=== PATIENT | female | born 1945 ===

== ENCOUNTER 2022-07-10 07:46 | Outpatient (CLI) | payer MEDICARE | END 2022-07-10 23:59 | disposition home or self-care (01) | LOC: LAB 07:46 | PROVIDERS: ATTEND Obstetrics & Gynecology | DX: Z01.812 Encounter for preprocedural laboratory examination (principal); Z20.822 Contact with and (suspected) exposure to COVID-19 ==

== ENCOUNTER 2022-07-13 08:56 | Inpatient (IN) | payer MEDICARE, OTHER ==
[~2022-07-13] VITALS: Ht 152.4 cm; Wt 60.8 kg
[2022-07-13] MEDS ORDERED: LIDOCAINE 1%-EPI 1:100,000 20 ML VIAL ONE (09:53)
[2022-07-13 10:35] LABS: *BILIRUBIN,URIN NEGATIVE (NEGATIVE); *CLARITY,URINE CLEAR (CLEAR); *COLOR,URINE YELLOW (YELLOW); *KETONES,URINE NEGATIVE (NEGATIVE); *UROBILINOGEN,URINE 0.2 E.U./dl (NORMAL); LEUKOCYTE ESTERASE ,URINE NEGATIVE (NEGATIVE); NITRITE, URINE NEGATIVE (NEGATIVE); PH,URINE 6.5 (5.0-8.0); UGLUCOSE NEGATIVE (NEGATIVE)
[2022-07-13] MEDS ORDERED: GLYCOPYRROLATE 0.2 MG/ML VIAL ONE (10:35)
[2022-07-13] MEDS ORDERED: DEXAMETHASONE SOD PHOSPHATE 4 MG INJ ONE (10:35)
[2022-07-13] MEDS ORDERED: ONDANSETRON 4 MG/2 ML VIAL ONE (10:35)
[2022-07-13] MEDS ORDERED: CEFAZOLIN 1 G VIAL ONE (10:35)
[2022-07-13] MEDS ORDERED: PROPOFOL 200 MG/20 ML BOTTLE ONE (10:35)
[2022-07-13] MEDS ORDERED: FENTANYL CITRATE 100 MCG/2 ML AMPUL ONE ×2 (10:37→11:59)
[2022-07-13 10:38] LABS: *BLOOD, URINE TRACE (NEGATIVE)
[2022-07-13] MEDS ORDERED: MIDAZOLAM HCL 2 MG/2 ML VIAL ONE (10:44)
[2022-07-13] MEDS ORDERED: BUPIVACAINE PF 0.5% 30 ML VIAL ONE (12:01)
[2022-07-13 13:08] LABS: BACTERIA,URINE NONE SEEN /HPF (NONE SEEN); CALCIUM CARBONATE CRYSTALS,UR NONE SEEN /HPF (NONE SEEN); CALCIUM OXALATE CRYSTALS,UR NONE SEEN /HPF (NONE SEEN); CALCIUM PHOSPHATE CRYSTALS,UR NONE SEEN /HPF (NONE SEEN); COARSE GRANULAR CASTS,URINE NONE SEEN /LPF; CYSTINE CRYSTALS,URINE NONE SEEN /HPF (NONE SEEN); FATTY CASTS,URINE NONE SEEN /LPF (NONE SEEN); MUCUS,URINE NONE SEEN /LPF (0-FEW); RBC,URINE 0-3 /HPF (0-3); RED BLOOD CELL CASTS,URINE NONE SEEN /LPF (NONE SEEN); SPERM,URINE NONE SEEN /HPF (NONE SEEN); SQUAMOUS EPITHELIAL CELL,UR FEW /HPF (NONE SEEN); TRICHOMONAS,URINE NONE SEEN /HPF (NONE SEEN); TRIPLE PHOSPHATE CRYSTAL,UR NONE SEEN /HPF (NONE SEEN); TYROSINE CRYSTAL,URINE NONE SEEN /HPF (NONE SEEN); URIC ACID CRYSTALS,URINE NONE SEEN /HPF (NONE SEEN); URINE AMORPHOUS PHOSPHATES NONE SEEN /HPF; URINE AMORPHOUS URATE NONE SEEN /HPF; WAXY CASTS,URINE NONE SEEN /LPF (NONE SEEN); WBC,URINE 0-3 /HPF (0-3); YEAST,URINE NONE SEEN /HPF (NONE SEEN)
--- NOTE | 2022-07-13 13:15 | NUR ---
RECEIVED PATIENT BY BED FROM THE [facility] AWAKE ALERT AND ORIENTED SHE IS ON O2 AT 4L/M BY NASAL CANULA WITH NO SOB AT THIS TIME IVF IN PROGRESS ORDERED PER REPORT SHE HAS VAGINAL PACKING AND SHE HAS A SANITARY PAD WITH NO DRAINAGE SEEN AT THIS TIME DVT PUMP IS IN USE.ORIENTED PATIENT TO ROOM AND FACILITY PROTOCOL MADE COMFORTABLE WILL CONTINUE TO OBSERVE.
--- NOTE | 2022-07-13 13:16 | NUR ---
PATIENT WAS RECEIVED FROM PACU WITH LACTATE RINGERS IN PROGRESS AT THIS TIME.
[2022-07-13 13:30] VITALS: BP 110/62
[2022-07-13] MEDS ORDERED: LAMO200T10 PO (14:23)
[2022-07-13] MEDS ORDERED: LEVO88TA5 PO (14:23)
[2022-07-13] MEDS ORDERED: LITH300C2 PO (14:23)
[2022-07-13] MEDS ORDERED: VIT1TABL66 PO (14:23)
[2022-07-13] MEDS ORDERED: FOLI1TAB27 PO (14:23)
[2022-07-13] MEDS ORDERED: PARO10TA4 PO (14:23)
[2022-07-13] MEDS ORDERED: BUPR-319 PO (14:23)
[2022-07-13] MEDS ORDERED: GABA-532 PO (14:23)
[2022-07-13 14:30] VITALS: BP 130/65
--- NOTE | 2022-07-13 14:30 | NUR ---
LATE LUNCH SERVED TO PATIENT AND SHE ATE WITH NO NAUSEA OR VOMITING AT THIS TIME WILL CONTINUE TO OBSERVE.
--- NOTE | 2022-07-13 15:00 | NUR ---
PATIENT SEEN IN THE BATHROOM BY HER SELF DID NOT CALL FOR HELP ASSISTED BACK INTO BED AND PATIENT REMINDED TO USE THE CALL LIGHT TO ASK FOR HELP TO AVOID FALLING AND ALSO REMINDED HER THAT SHE HAS VAGINAL PACKING TO NOT TOUCH OR TRY TO REMOVE PER HER DOCTOR WILL BE REMOVED TOMORROW PER ORDERS AND SHE EXPRESSED UNDERSTANDING.
[2022-07-13 15:42] VITALS: BP 133/72
[2022-07-13] MEDS ORDERED: MORPHINE SULFATE 4 MG/1 ML DISP.SYRIN IV PRN (17:30)
[2022-07-13] MEDS ORDERED: REMEDY ESSENTIAL ZINC PASTE 113 GM TP PRN (17:30)
[2022-07-13] MEDS ORDERED: LORAZEPAM 2 MG/1 ML VIAL IV PRN (17:30)
[2022-07-13] MEDS ORDERED: ONDANSETRON 4 MG/2 ML VIAL IV PRN (17:30)
[2022-07-13] MEDS ORDERED: ACETAMINOPHEN 325 MG TABLET PO PRN (17:30)
[2022-07-13] MEDS: IV LACTATED RINGERS SOLUTION 1,000 ML IV PRN (17:55)
--- NOTE | 2022-07-13 18:15 | NUR ---
DR ADAMS HERE AND SEEN PATIENT WITH NEW ORDERS AND NOTED.
[2022-07-13] MEDS ORDERED: MINERAL OIL/PETROLAT OPHT OINT 3.5 GM TUBE OP PRN (19:00)
[2022-07-13] MEDS: CEFAZOLIN 1 G in IV DEXTROSE 5% 50 ML IV SCH (19:02)
[2022-07-13 20:00] VITALS: BP 131/71
--- NOTE | 2022-07-13 20:00 | NUR ---
RECEIVED PATIENT AWAKE IN BED WITH AT BEDSIDE. PATIENT IS A/O X4. FARSI SPEAKING BUT ABLE TO MAKE NEEDS KNOWN. DENIES PAIN AT THIS TIME. VSS. IVF INFUSING WELL TO LEFT WRIST. DVT IN PLACE. CALL LIGHT IN REACH. ALL NEEDS ATTENDED. WILL CONTINUE TO MONITOR AND ASSESS.
[2022-07-13] MEDS ORDERED: POLYVINYL ALCOHOL OPHT DROPS 15 ML BOTTLE OP SCH (21:00)
[2022-07-13] MEDS ORDERED: LITHIUM CARBONATE 300 MG CAPSULE PO SCH (21:00)
[2022-07-13] MEDS ORDERED: LAMOTRIGINE 200 MG TABLET PO SCH (21:00)
[2022-07-14] MEDS: CEFAZOLIN 1 G in IV DEXTROSE 5% 50 ML IV SCH (02:37)
[2022-07-14] MEDS: IV LACTATED RINGERS SOLUTION 1,000 ML IV PRN ×2 (02:40→10:54)
[2022-07-14 04:00] VITALS: BP 114/62
[2022-07-14 06:48] LABS: HEMATOCRIT 34.5 % (31.2-41.9); MEAN CORPUSCULAR HEMOGLOBIN 31.1 uug (24.7-32.8); MEAN CORPUSCULAR VOLUME 93.5 fL (75.5-95.3); PLATELET COUNT (AUTO) 276 K/uL (179-408)
[2022-07-14 07:00] LABS: CREATININE 0.8 mg/dL (0.6-1.3); MAGNESIUM 1.8 mg/dL (1.8-2.4); PHOSPHOROUS 3.2 mg/dL (2.5-4.9); POTASSIUM 4.2 mmol/L (3.5-5.1)
[2022-07-14] MEDS ORDERED: LEVOTHYROXINE SODIUM 88 MCG TABLET PO SCH (07:00)
[2022-07-14 09:00] VITALS: BP 106/59
[2022-07-14] MEDS ORDERED: GABAPENTIN 100 MG CAPSULE PO SCH (09:00)
[2022-07-14] MEDS ORDERED: buPROPion XL 150 MG TAB.SR.24H PO SCH (09:00)
[2022-07-14] MEDS ORDERED: FOLIC ACID 1 MG TABLET PO SCH (09:00)
[2022-07-14] MEDS ORDERED: PAROXETINE HCL 10 MG TABLET PO SCH (09:00)
[2022-07-14 11:56] VITALS: BP 128/59
--- NOTE | 2022-07-14 13:00 | NUR ---
PATIENT IS ALERT AND ORIENTED X4, AND ABLE TO SPEAK SOME BEL[place]. VITAL SIGNS STABLE. PATIENT TOLERATES PO MEDICATIONS AND DIET WELL. IV FLUIDS GIVEN PER ORDER. ALL NEEDS MET AT THIS TIME. CALL LIGHT WITHIN REACH. SURGEON CAME TO REMOVE EARL CATHETER AND GAUZE DRESSING. NO COMPLICATIONS. PATIENT VOIDS AT 1228PM VIA TOILET. PATIENT MADE AWARE OF DISCHARGE BY PROVIDERS. RN PROVIDES DISCHARGE EDUCATION. PATIENT VERBALIZES UNDERSTANDING. ALL QUESTIONS ANSWERED. PATIENT BELONGINGS ACCOUNTED FOR. PATIENT BELONGINGS LIST SIGNED. IV REMOVED. CATHETER TIP INTACT. PATIENT EXCITED TO GO HOME. PATIENT DISCHARGE VIA WHEELCHAIR IN STABLE CONDITION TO , [facility].
== END 2022-07-14 13:00 | disposition home health service (06) | DRG 664 ==
LOC: DS 08:56 → MEDSURG3 13:36
PROVIDERS: ADMIT Obstetrics & Gynecology; ATTEND Nurse Practitioner Acute Care
PROC: 0USG8ZZ Reposition Vagina, Via Natural or Artificial Opening Endoscopic (ICD-10-PCS; principal; 2022-07-13)
PROC: 0JQC3ZZ Repair Pelvic Region Subcutaneous Tissue and Fascia, Percutaneous Approach (ICD-10-PCS; 2022-07-13)
DX: N39.46 Mixed incontinence (principal); N81.10 Cystocele, unspecified; N89.5 Stricture and atresia of vagina; J45.909 Unspecified asthma, uncomplicated; F41.9 Anxiety disorder, unspecified; Z90.710 Acquired absence of both cervix and uterus; Z79.899 Other long term (current) drug therapy; E66.9 Obesity, unspecified; Z68.26 Body mass index [BMI] 26.0-26.9, adult; E03.9 Hypothyroidism, unspecified; D72.829 Elevated white blood cell count, unspecified; Z88.0 Allergy status to penicillin; F32.A Depression, unspecified
CPT/HCPCS: 36415; 71045; 83735; 84100; 85025; 85730; 93005; A4649; A4663; G0378; J0690; J1100; J2060; J2250; J2270; J2405; J3010; J3490; J7120